=== PATIENT | female | born 1935 | race Caucasian/White ===

== ENCOUNTER → 2016-07-08 | Outpatient (CLI) | payer MEDICARE ==
[~2016-07-08] MED LIST: ADALAT CC30 MG; ADALAT CC30 MG PO; ARICEPT10 MG PO; ARTIFICIAL TEAR15 ML OPHTH; ASPIRIN EC81 MG PO; B COMPLEX WITH1 EACH PO; CALCIUM 600 +1 EA12 PO; COLACE100 MG PO; CPAP INH; DAILY MULTIPLE1 EAC1 PO; DULCOLAX10 MG R; ECOTRIN81 MG PO; EYE DROP TEARS15 ML OPHTH; FIBER THERAPY0.52 GM PO; FISH OIL 1,2001 EACH PO; GLYCERIN ADULT R; LEVOTHROID (SY50 MCG PO; LIPITOR20 M1 PO; METAMUCIL CAPSU1 CAP PO; MILK OF MA400 MG/5 M PO; MIRALAX17 GM PO; MOBIC15 MG PO; MYRBETRIQ50 MG PO; NORCO 5-325 TA1 EACH PO; OXYBUTYNIN CHLOR5 MG PO; OXYBUTYNIN TOP; PRILOSEC20 MG PO; PROZAC20 MG PO; RESTASIS1 EACH OPHTH; ROPINIROLE HCL2 MG PO; SYSTANE GEL EYE10 ML OPHTH; TRAVATAN Z OPH2.5 ML OPHTH; TUMS REGULAR ST1 TAB PO; TYLENOL325 MG PO; ULTRAM50 MG PO; VALIUM5 MG PO; VERAPAMIL HCL40 MG PO; ZOCOR10 MG PO
== END | disposition disaster alternative care site (69) ==
LOC: GRAD 07-05 11:00
DX: R11.0 Nausea (principal)
CPT/HCPCS: A9541

== ENCOUNTER → 2016-10-07 | Outpatient (CLI) | payer MEDICARE | END | disposition disaster alternative care site (69) | LOC: GBCOE 11:57 | DX: Z12.31 Encounter for screening mammogram for malignant neoplasm of breast (principal); N28.1 Cyst of kidney, acquired | CPT/HCPCS: G0202 ==

== ENCOUNTER → 2016-10-31 | Outpatient (CLI) | payer MEDICARE | END | disposition disaster alternative care site (69) | LOC: GOPD 10-24 | PROC: 0T903ZZ Drainage of Right Kidney, Percutaneous Approach (ICD-10-PCS; principal; 2016-10-31) | DX: N28.1 Cyst of kidney, acquired (principal) ==